=== PATIENT | female | born 1950 | race Caucasian/White ===

== ENCOUNTER → 2018-06-27 | Outpatient (CLI) | payer OTHER ==
[~2018-06-27] MED LIST: ASPIRIN325 PO; BYSTOLIC 5 MG5 M1 PO; NORVASC 5 MG TAB5 MG PO; TAMBOCOR 50 MG50 MG PO
== END ==
LOC: CAT 14:15
DX: Z13.6 Encounter for screening for cardiovascular disorders (principal); E78.00 Pure hypercholesterolemia, unspecified; I25.10 Atherosclerotic heart disease of native coronary artery without angina pectoris

== ENCOUNTER → 2018-12-15 | Outpatient (CLI) | payer OTHER ==
[~2018-12-15] VITALS: Ht 172.7 cm; Wt 79.4 kg
[~2018-12-15] MED LIST changes: +BYSTOLIC 5 MG5 MG PO; +BYSTOLIC10 MG PO; +CHLORTHALIDONE25 MG PO; +CHOLECALCIFEROL1 GM PO; +ELIQUIS2.5 MG PO; +LEVOTHYROXINE100 MC1 PO; +MOBIC7.5 MG PO; +NORVASC5 M1 PO; +PRAVACHOL 20 MG20 M1 PO
[2018-12-15 07:11] VITALS: BP 144/55
[2018-12-15 07:37] LABS: HEMATOCRIT 35.6 % (37.0-47.0); MCH 30.6 pg (26.0-34.0); MCHC 33.8 g/dL (28.0-37.0); MCV 90.5 fL (80.0-100.0); RBC 3.93 mil/uL (4.20-5.00); RDW 12.7 % (10.5-14.5); WBC 8.3 thou/uL (4.0-11.0)
[2018-12-15 07:47] LABS: CALCIUM 9.4 mg/dL (8.5-10.1); CREATININE 0.7 mg/dL (0.6-1.0); POTASSIUM 3.2 mmol/L (3.5-5.1)
--- NOTE | 2018-12-15 12:28 | EKG ---
[address] [address] ELECTROCARDIOGRAM REPORT Name: CARLITOS WAGNER Room #: REG [facility]#: [id number] Admission: 12/15/18 Attend Phys: Tulio Cerrato MD, Discharge: Date of : 54 Report #: [id number] THIS REPORT FOR: //name// [facility] Test Date: 2018-12-15 Test Time: 07:20:39 Pat Name: CARLITOS WAGNER Department: Room: Gender: F [employer] Manager: Grecia BORJAS : 1950 Requested By: Tulio Cerrato Order Number: [id number] MD: Lionel Conde Measurements Intervals [place] Rate: 62 P: 60 [place]: 196 QRS: 26 QRSD: 112 T: 0 QT: 447 QTc: 454 Interpretive Statements Sinus rhythm Atrial premature complex Borderline intraventricular conduction delay Nonspecific ST segment abnormalities Compared to ECG 10/15/2009 17:43:35 Atrial premature complex(es) now present T-wave abnormality now present ST (T wave) deviation no longer present Possible ischemia no longer present Electronically Signed On 12-15-2018 12:28:29 [employer]ING[employer] OPERATOR by Lionel Conde [email or web address] <ELECTRONICALLY SIGNED> By: Lionel Conde MD 12/15/18 1228 9 9 Lionel Conde MD /EPI
--- NOTE | 2018-12-19 14:00 | CATHLAB ---
[facility] [address] [place] [address] INVASIVE PROCEDURE REPORT Name: BERNARDCARLITOS M [id number] Admission: 12/15/18 Attend Phys: Tulio Cerrato, Discharge: Date of : 54 Report #: [id number] THIS REPORT FOR: //name// APPROVED REPORT Study performed: 12/15/2018 07:42:35 Patient Details Patient Status: Out-Patient Room #: The patient is a 68 year-old female Event Personnel Tulio Cerrato Bi Manager, Joya Kincaid RN, Rama Hart RN RN, Leena Pereira, Maite Rockwell RTR Scrub, Jacqui Mcleod RTR Scrub Procedures Performed Art Access - R femoral artery* 90458 Initial Mod Sed Same Phys/QHP Gr5y 736443 47064 Mod Sed Same Phys/QHP Ea 575340 80056 Mod Sed Same Phys/QHP Ea 619825 Left Heart Cath w/or w/o Coronaries 6720895 [facility] Aortogram Abdominal Peripheral Angio 532201 Hemostasis w/ Mynx Indication Chest pain Procedure Narrative The patient was brought electively to the Cardiac Catheterization Laboratory and was prepped and draped in a sterile manner. The Right Groin^ was infiltrated with 1% Lidocaine subcutaneous anesthesia. A PINNACLE 6FR Sheath #[id number] sheath was inserted into the RFA^. Coronary angiography was performed using coronary diagnostic catheters. The right coronary system was accessed and visualized with a JR 4 catheter. The left coronary system was accessed and visualized with a JL 4 catheter. The left ventricle was accessed and visualized with a Pigtail catheter. Left ventriculogram was performed in GAN projection. An aortogram of the abdominal aorta was performed. Pre-demployment femoral angiogram was performed . Closure device was deployed with a 6 Fr Mynx. The patient tolerated the procedure well and there were no complications associated with the procedure. There was no hematoma. Intraoperative Conscious Sedation Sedation start time: 08:28 Case end Time: 08:[address] [address] INVASIVE PROCEDURE REPORT Name: CARLITOS WAGNER Room #: [facility] [id number] Admission: 12/15/18 Attend Phys: Tulio Cerrato, Discharge: Date of : 54 Report #: [id number] Fentanyl 50.0 mcg Versed 1.0 mg Fluoro Time: 1.45 minutes Dose: DAP 2000.00 cGycm2 227 mGy Contrast Type and Amount: Omnipaque 120 ml Hemodynamics The aortic pressure is 142/57 mmHg with a mean of 78 mmHg. The left ventricular pressure is 165/7 mmHg with a mean of mmHg. The left ventricular end diastolic pressure is 20 mmHg. Conclusion #1 normal left ventricular size and systolic function EF 60%. #2 abdominal aortogram revealing no erosive aneurysm single renal arteries appear to be widely patent. #3 left main with mild ostial disease giving rise to LAD and circumflex. #4 LAD extends around the apex mild diffuse disease distally. #5 circumflex OM is nondominant with mild irregularity #6 dominant right coronary with mild distal irregularity no occlusive disease Recommendations and plan: Continue aggressive risk factor modification. No indication for coronary intervention. <ELECTRONICALLY SIGNED> By: Tulio Cerrato MD, FACC 12/19/18 1359 1359 1359 Tulio Cerrato MD, FACC /INF
== END | disposition home or self-care (01) ==
LOC: CATH 06:24
PROVIDERS: Internal Medicine Cardiovascular Disease
DX: R07.9 Chest pain, unspecified (principal); I25.10 Atherosclerotic heart disease of native coronary artery without angina pectoris; I48.91 Unspecified atrial fibrillation; I10 Essential (primary) hypertension; E11.9 Type 2 diabetes mellitus without complications; Z79.4 Long term (current) use of insulin; Z82.49 Family history of ischemic heart disease and other diseases of the circulatory system; Z79.01 Long term (current) use of anticoagulants; Z87.891 Personal history of nicotine dependence

== ENCOUNTER → 2018-12-20 | Outpatient (CLI) | payer OTHER ==
--- NOTE | 2018-12-20 11:58 | NUR ---
1115-RECEIVED PT FROM ULTRASOUND, NO COMPLAINTS, RIGHT GROIN BRUISED WITH BANDAIDE INTACT. DRINK GIVEN TO PT, PT READING BOOK. WILL CONTINUE TO MONITOR PTS RIGHT GROIN FOR THE NEXT COUPLE OF HOURS.
--- NOTE | 2018-12-20 13:27 | NUR ---
1230-PT PLACED ON BEDPAN, RIGHT GROIN UNCHANGED, PT VOIDED WTIHOUT DIFFICULTY. BED LINEN WET FROM URINE, CHANGED AND FRESH LINEN PLACED UNDER PT. PT RESTING COMFORTABLY.
--- NOTE | 2018-12-20 13:40 | NUR ---
PT UP OUT OF BED WITHOUT ANY DIFFICULTY OR COMPLAINTS. PT NOTED THAT HER RIGHT GROIN DID FEEL BETTER THEN BEFORE. DC INSTRUCTIONS REVIEWED WITH PT AND ALL QUESTIONS ANSWERED. PT HAS FOLLOW UP ULTRASOUND TOMORROW AT [facility] OFFICE.
== END ==
LOC: ULTRA 08:45
DX: I72.4 Aneurysm of artery of lower extremity (principal); Z98.890 Other specified postprocedural states; Z79.899 Other long term (current) drug therapy; Z88.2 Allergy status to sulfonamides; Z88.8 Allergy status to other drugs, medicaments and biological substances; Z79.01 Long term (current) use of anticoagulants

== ENCOUNTER → 2019-10-24 | Outpatient (CLI) | payer OTHER | LOC: SJCVC 12:21 | PROVIDERS: ATTEND Internal Medicine Cardiovascular Disease | DX: R94.31 Abnormal electrocardiogram [ECG] [EKG] (principal); I25.10 Atherosclerotic heart disease of native coronary artery without angina pectoris; I48.0 Paroxysmal atrial fibrillation; E78.00 Pure hypercholesterolemia, unspecified; I10 Essential (primary) hypertension; Z79.01 Long term (current) use of anticoagulants; Z82.49 Family history of ischemic heart disease and other diseases of the circulatory system; Z79.899 Other long term (current) drug therapy; Z87.891 Personal history of nicotine dependence ==

== ENCOUNTER → 2020-07-04 | Outpatient (CLI) | payer OTHER | LOC: SJCVC 15:52 | PROVIDERS: ATTEND Internal Medicine Cardiovascular Disease | DX: R94.31 Abnormal electrocardiogram [ECG] [EKG] (principal); I25.10 Atherosclerotic heart disease of native coronary artery without angina pectoris; I10 Essential (primary) hypertension; E78.00 Pure hypercholesterolemia, unspecified; I48.0 Paroxysmal atrial fibrillation; Z79.01 Long term (current) use of anticoagulants; Z70.1 Counseling related to patient's sexual behavior and orientation; Z87.891 Personal history of nicotine dependence; Z72.89 Other problems related to lifestyle; Z79.899 Other long term (current) drug therapy; Z88.5 Allergy status to narcotic agent; Z88.2 Allergy status to sulfonamides; Z88.8 Allergy status to other drugs, medicaments and biological substances ==

== ENCOUNTER → 2020-12-04 | Outpatient (CLI) | payer OTHER | LOC: SJCVCIMAG 08:12 | PROVIDERS: ATTEND Internal Medicine Cardiovascular Disease | DX: I70.1 Atherosclerosis of renal artery (principal); I48.91 Unspecified atrial fibrillation; I10 Essential (primary) hypertension; Z88.2 Allergy status to sulfonamides; Z88.5 Allergy status to narcotic agent; Z88.8 Allergy status to other drugs, medicaments and biological substances; E78.00 Pure hypercholesterolemia, unspecified; Z87.891 Personal history of nicotine dependence; Z72.89 Other problems related to lifestyle; Z79.899 Other long term (current) drug therapy ==

== ENCOUNTER → 2020-12-10 | Outpatient (CLI) | payer OTHER | LOC: SJCVC 15:15 | PROVIDERS: ATTEND Internal Medicine Cardiovascular Disease | DX: R94.31 Abnormal electrocardiogram [ECG] [EKG] (principal); I25.10 Atherosclerotic heart disease of native coronary artery without angina pectoris; I10 Essential (primary) hypertension; I48.0 Paroxysmal atrial fibrillation; E78.00 Pure hypercholesterolemia, unspecified; D68.59 Other primary thrombophilia; Z87.891 Personal history of nicotine dependence; Z72.89 Other problems related to lifestyle; Z79.899 Other long term (current) drug therapy; Z88.2 Allergy status to sulfonamides; Z88.5 Allergy status to narcotic agent; Z88.8 Allergy status to other drugs, medicaments and biological substances ==